=== PATIENT | male | born 1960 | race Caucasian/White ===

== ENCOUNTER 2017-06-06 02:35 | Emergency (ER) | payer OTHER ==
[~2017-06-06] VITALS: Ht 180.3 cm; Wt 64.9 kg
[~2017-06-06 02:35] MED LIST: ALBUTEROL0.09 MG/A2 IH; AMBIEN10 M1 PO; ANAPROX DS550 MG PO; ANTIVERT25 MG PO; ASCRIPTIN325 MG PO; ASPRIN/BUTALBIT1 TAB PO; BIAXIN500 MG PO; CALCIUM; CELEXA20 MG PO; DELTASONE20 MG PO; DOXYCYCLINE100 M2 PO; ENTEX PSE 400 M1 CER PO; FLEXERIL10 MG PO; FLEXERIL5 MG PO; FOSAMAX70 MG PO; HYDROCODONE BIT1 T11 PO; LEVAQUIN750 MG PO; LISINOPRIL10 MG PO; LISINOPRIL20 MG PO; LOVASTATIN20 MG PO; LOVASTATIN40 MG PO; MEDROL DOSEPAK4 MG PO; MOTRIN800 MG PO; NASACORT55 MCG/ACT NS; OYSTER CALCIUM500 MG PO; OYSTER SHELL C500 M3 PO; PERCOCET 325 MG1 TA5 PO; PERCOCET 325 MG1 TA7 PO; PRILOSEC20 MG PO; PROVENTIL0.09 MG/AC IH; ROBITUSSIN AC 10 MG/ PO; SINGULAIR10 MG PO; TORADOL10 MG PO; VICODIN 5/500 505 MG PO; VICODIN ES 7501 TAB PO; ZANTAC150 MG PO; ZITHROMAX Z PA250 MG PO; ZITHROMAX500 MG PO
[2017-06-06 03:02] LABS: BASO % 0.3 % (0.0-1.0); EOS # 0.1 10*3/uL (0.0-0.4); EOS % 1.1 % (1.0-4.0); HEMATOCRIT 41.5 % (42.0-52.0); HEMOGLOBIN 15.1 g/dl (14.0-18.0); LYMPH % 39.6 % (27.0-41.0); MEAN CELL VOLUME 98.6 fl (80.0-94.0); MEAN CORPUSCULAR HGB 35.9 pg (27.0-31.0); MEAN CORPUSCULAR HGB CONC 36.4 g/dl (33.0-37.0); MEAN PLATELET VOLUME 10.5 fl (9.6-12.3); MONO # 0.5 10*3/uL (0.1-1.0); MONO % 5.4 % (3.0-9.0); NEUT # 5.3 10*3/uL (2.3-7.9); NEUT % 53.3 % (47.0-73.0); PLATELET COUNT AUTOMATED 202 10*3/uL (130-400); RED BLOOD COUNT 4.21 10*6/uL (4.50-5.90); RED CELL DISTRI WIDTH 12.7 % (0-14.5)
[2017-06-06 03:13] LABS: ACT PARTIAL THROMBO TIME 29.5 SECONDS (20.8-31.5)
[2017-06-06 03:18] LABS: ALKALINE PHOSPHATASE 103 U/L (45-117); BUN 6 mg/dl (7-24); CHLORIDE 95 mmol/L (98-107); CREATININE 0.76 mg/dL (0.70-1.30); LIPASE 171 U/L (73-393); POTASSIUM 4.1 mmol/L (3.5-5.1); SGOT/AST 42 IU/L (3-35); SGPT/ALT 27 U/L (12-78); SODIUM 132 mmol/L (136-145); TOTAL PROTEIN 6.6 gm/dL (6.4-8.2)
[2017-06-06 05:34] VITALS: BP 100/56
== END 2017-06-06 06:58 | disposition home or self-care (01) ==
LOC: ED 02:35
PROVIDERS: Emergency Medicine Emergency Medical Services
DX: S01.01XA Laceration without foreign body of scalp, initial encounter (principal); F10.129 Alcohol abuse with intoxication, unspecified; F17.200 Nicotine dependence, unspecified, uncomplicated; Z88.0 Allergy status to penicillin; Z79.899 Other long term (current) drug therapy; Z91.018 Allergy to other foods; Y04.0XXA Assault by unarmed brawl or fight, initial encounter; Y93.89 Activity, other specified; Y92.89 Other specified places as the place of occurrence of the external cause; Y99.8 Other external cause status

== ENCOUNTER 2017-09-08 22:26 | Emergency (ER) | payer OTHER ==
[~2017-09-08] VITALS: Ht 180.3 cm; Wt 64.9 kg
[2017-09-08 22:31] VITALS: BP 123/81
[2017-09-08 23:00] LABS: BASO % 0.3 % (0.0-1.0); EOS # 0.1 10*3/uL (0.0-0.4); EOS % 0.7 % (1.0-4.0); HEMATOCRIT 38.2 % (42.0-52.0); HEMOGLOBIN 13.7 g/dl (14.0-18.0); LYMPH # 3.3 10*3/uL (1.3-4.4); LYMPH % 32.4 % (27.0-41.0); MEAN CELL VOLUME 101.1 fl (80.0-94.0); MEAN CORPUSCULAR HGB 36.2 pg (27.0-31.0); MEAN CORPUSCULAR HGB CONC 35.9 g/dl (33.0-37.0); MEAN PLATELET VOLUME 10.2 fl (9.6-12.3); MONO # 1.1 10*3/uL (0.1-1.0); MONO % 10.9 % (3.0-9.0); NEUT # 5.7 10*3/uL (2.3-7.9); NEUT % 55.4 % (47.0-73.0); PLATELET COUNT AUTOMATED 121 10*3/uL (130-400); RED BLOOD COUNT 3.78 10*6/uL (4.50-5.90); RED CELL DISTRI WIDTH 13.3 % (0-14.5); WHITE BLOOD COUNT 10.2 10*3/uL (4.8-10.8)
[2017-09-08 23:10] LABS: ACT PARTIAL THROMBO TIME 29.9 SECONDS (20.8-31.5)
[2017-09-08 23:22] LABS: ALBUMIN 3.6 gm/dl (3.1-4.5); ALKALINE PHOSPHATASE 71 U/L (45-117); BUN 16 mg/dl (7-24); CHLORIDE 103 mmol/L (98-107); CREATININE 0.67 mg/dL (0.70-1.30); LIPASE 329 U/L (73-393); POTASSIUM 3.9 mmol/L (3.5-5.1); SGOT/AST 26 IU/L (3-35); SGPT/ALT 28 U/L (12-78); SODIUM 138 mmol/L (136-145); TOTAL PROTEIN 6.6 gm/dL (6.4-8.2); TROPONIN I < 0.015 ng/ml (<0.045)
[2017-09-08 23:42] LABS: BILIRUBIN NEGATIVE (NEGATIVE); BLOOD TRACE-INTACT (NEGATIVE); CLARITY CLEAR (CLEAR); COLOR YELLOW (YELLOW); GLUCOSE NEGATIVE (NEGATIVE); KETONE NEGATIVE (NEGATIVE); LEUKO ESTERASE NEGATIVE (NEGATIVE); NITRITE NEGATIVE (NEGATIVE); PH 5.5 (5.0-9.0); UROBILINOGEN 0.2 E.U./dl (0.2-1.0)
[2017-09-08 23:49] LABS: EPITHELIAL CELLS 0-5; RBC 0-2 rbc/hpf (0-2); WBC 0-2 wbc/hpf (0-5)
[2017-09-09] MEDS ORDERED: CIPRO500 MG PO (00:54)
[2017-09-09] MEDS ORDERED: ANAPROX DS550 MG PO (00:54)
== END 2017-09-09 01:02 | disposition home or self-care (01) ==
LOC: ED 22:26
PROVIDERS: Physician Assistant
DX: K52.9 Noninfective gastroenteritis and colitis, unspecified (principal); J98.11 Atelectasis; M25.511 Pain in right shoulder; F17.200 Nicotine dependence, unspecified, uncomplicated; Z88.0 Allergy status to penicillin; Z79.899 Other long term (current) drug therapy; Z91.09 Other allergy status, other than to drugs and biological substances

== ENCOUNTER 2017-11-03 21:59 | Inpatient (IN) | payer OTHER ==
[~2017-11-03] VITALS: Ht 180.3 cm; Wt 75.8 kg
--- NOTE | ~2017-11-03 | PR ---
[place], [place] PROGRESS NOTE NAME: THELMA ODEN [facility] #: [id number] UNIT #: [id number] ROOM: 530 DOCTOR: MATI NARANJO MD BIRTHDATE: [birth year] DOS: CARDIOLOGY PROGRESS NOTE SUBJECTIVE: The patient was seen in the Cardiology Department just prior to his stress test today. He is a 57-year-old man who presented to the hospital with rapidly progressive dyspnea. He has no chest pain. His chest x-ray showed pulmonary vascular congestion. BNP was 1224, but troponin levels were normal. It was felt that he had acute congestive heart failure. He was diuresed and improved. An echocardiogram today showed normal left ventricular size with thickened mitral valve leaflets with decreased leaflet excursion. He had kqffgiss-yg-nlymoo mitral insufficiency. There was no definite mitral stenosis. The aortic valve was mildly sclerotic. Left ventricular chamber dimensions were normal. His IVC was dilated consistent with elevated central venous pressures. The patient does admit to a history of rheumatic fever when he was about 9 years of age. PHYSICAL EXAMINATION: VITAL SIGNS: Today, pulse is 75 and regular, blood pressure is 109/69. He is afebrile. NECK: Supple. He has no jugular distention or hepatojugular reflux. Carotids are full. LUNGS: Respirations are unlabored. He has decreased breath sounds at the bases, but no rales. HEART: Has a regular rhythm. He has a grade 3/6 harsh low pitched holosystolic murmur at the apex radiating into the axilla. No diastolic murmurs are heard. The PMI is not displaced. There is no precordial heave, lift or thrill. ABDOMEN: Soft and normally active. EXTREMITIES: Showed no edema. IMPRESSION: 1. Subacute pulmonary edema. 2. Hypertension. 3. Type 2 diabetes mellitus. 4. History of rheumatic fever when the patient was 9 years of age. 5. Echocardiography consistent with zplfqgbv-ud-atprfl mitral insufficiency. PLAN: We will proceed with a pharmacologic stress test today. If it shows any signs of ischemia, then he will require cardiac catheterization. Otherwise, he may be treated medically for a time, but will require further assessment, possibly with a transesophageal echocardiogram once he has been stabilized and consideration for valve replacement in the future. I thank the hospitalist physicians for asking our advice regarding his care. ADDENDUM [place], [place] PROGRESS NOTE NAME: THELMA ODEN UNIT #: [id number] ROOM: 530 DOCTOR: MATI NARANJO MD BIRTHDATE: [birth year] I reviewed the patient's nuclear perfusion images. He does have a moderately enlarged heart with a moderate sized area of anteroseptal ischemia at the basal and mid left ventricular levels. Left ventricular systolic function is preserved with an ejection fraction between 60% and 70%. He presented with heart failure, which is probably due to a combination of ischemic heart disease and mitral insufficiency from rheumatic heart disease. I have discussed his case with the fitness professional at [facility]. They think that there is a good chance that he will require mitral valve replacement and have suggested that we do a transesophageal echocardiogram at [facility] as a first step. The images would be reviewed by the surgeons. If they agree that he requires valve repair or replacement, then catheterization would be done as a "roadmap." If, however, they want us to treat him medically as a first step, catheterization would be done to determine his coronary anatomy and probably do angioplasty and stenting. Unfortunately, the patient states that he has family business that he must attend to prior to any consideration of surgeries and told me that he would not agree to go to [facility] until he has had a chance to go home, talk to his family and make arrangements. Then, he will give us a call. We will adjust his medications as we can and proceed when he will let us. I thank Dr. Perdue for asking our advice regarding his care. MATI NARANJO MD CM:PNTRANS [id number] MATI NARANJO MD 11/06/17 0428 interface
--- NOTE | ~2017-11-03 | PR ---
[place], [place] PROGRESS [id number] UNIT #: [id number] ROOM: 530 DOCTOR: MARCELLA KUMAR,MATI BIRTHDATE: [birth year] DOS: 11/05/2017 ADDENDUM I reviewed the patient's nuclear perfusion images. He does have a moderately enlarged heart with a moderate sized area of anteroseptal ischemia at the basal and mid left ventricular levels. Left ventricular systolic function is preserved with an ejection fraction between 60% and 70%. He presented with heart failure, which is probably due to a combination of ischemic heart disease and mitral insufficiency from rheumatic heart disease. I have discussed his case with the tong setter at [facility]. They think that there is a good chance that he will require mitral valve replacement and have suggested that we do a transesophageal echocardiogram at [facility] as a first step. The images would be reviewed by the surgeons. If they agree that he requires valve repair or replacement, then catheterization would be done as a "roadmap." If, however, they want us to treat him medically as a first step, catheterization would be done to determine his coronary anatomy and probably do angioplasty and stenting. Unfortunately, the patient states that he has family business that he must attend to prior to any consideration of surgeries and told me that he would not agree to go to [facility] until he has had a chance to go home, talk to his family and make arrangements. Then, he will give us a call. We will adjust his medications as we can and proceed when he will let us. I thank Dr. Perdue for asking our advice regarding his care. MATI NARANJO MD CM:PNTRANS [phone] MATI NARANJO MD 11/06/17 1917 interface
[~2017-11-03 21:59] MED LIST changes: +CIPRO500 MG PO
[2017-11-03 22:06] VITALS: BP 167/107
[2017-11-03 22:26] LABS: BASO % 0.4 % (0.0-1.0); EOS # 0.1 10*3/uL (0.0-0.4); EOS % 1.4 % (1.0-4.0); HEMATOCRIT 39.3 % (42.0-52.0); HEMOGLOBIN 13.5 g/dl (14.0-18.0); LYMPH # 2.3 10*3/uL (1.3-4.4); LYMPH % 30.5 % (27.0-41.0); MEAN CELL VOLUME 104.8 fl (80.0-94.0); MEAN CORPUSCULAR HGB CONC 34.4 g/dl (33.0-37.0); MEAN PLATELET VOLUME 10.7 fl (9.6-12.3); MONO # 0.8 10*3/uL (0.1-1.0); MONO % 10.3 % (3.0-9.0); NEUT # 4.4 10*3/uL (2.3-7.9); NEUT % 57.1 % (47.0-73.0); PLATELET COUNT AUTOMATED 181 10*3/uL (130-400); RED BLOOD COUNT 3.75 10*6/uL (4.50-5.90); RED CELL DISTRI WIDTH 14.1 % (0-14.5); WHITE BLOOD COUNT 7.6 10*3/uL (4.8-10.8)
[2017-11-03 22:27] LABS: ABG BASE EXCESS 1.9 mmol/L (-2.0-2.0); ABG HCO3 26.7 mmol/l (22-26); ABG O2 SATURATION 94.6 % (95-97); ARTERIAL BLOOD GAS PCO2 42.9 mmHg (35-45); ARTERIAL BLOOD GAS PH 7.407 (7.35-7.45); ARTERIAL BLOOD GAS PO2 71.1 mmHg (80-90)
[2017-11-03 22:35] VITALS: BP 144/104
[2017-11-03 22:35] LABS: INTERNATIONAL NORM RATIO 1.1 (2.0-3.5)
[2017-11-03 22:44] LABS: ALBUMIN 3.5 gm/dl (3.1-4.5); ALKALINE PHOSPHATASE 90 U/L (45-117); BUN 14 mg/dl (7-24); CHLORIDE 103 mmol/L (98-107); CREATININE 0.76 mg/dL (0.70-1.30); POTASSIUM 3.3 mmol/L (3.5-5.1); SGOT/AST 44 IU/L (3-35); SGPT/ALT 51 U/L (12-78); SODIUM 140 mmol/L (136-145); TOTAL PROTEIN 6.3 gm/dL (6.4-8.2)
[2017-11-03 22:45] LABS: TROPONIN I 0.019 ng/ml (<0.045)
[2017-11-03 23:29] VITALS: BP 142/91
[2017-11-03 23:49] VITALS: BP 151/89
[2017-11-04] VITALS (7 sets, daily range): BP systolic 107–145; BP diastolic 56–89
[2017-11-04] LABS: BILIRUBIN NEGATIVE (NEGATIVE); BLOOD TRACE-LYSED (NEGATIVE); CLARITY CLEAR (CLEAR); COLOR YELLOW (YELLOW); GLUCOSE NEGATIVE (NEGATIVE); KETONE NEGATIVE (NEGATIVE); LEUKO ESTERASE NEGATIVE (NEGATIVE); NITRITE NEGATIVE (NEGATIVE); PH 6.5 (5.0-9.0); SPECIFIC GRAVITY 1.025 (1.005-1.030); UROBILINOGEN 0.2 E.U./dl (0.2-1.0)
[2017-11-04 05:53] LABS: BASO % 0.2 % (0.0-1.0); HEMATOCRIT 37.5 % (42.0-52.0); LYMPH # 0.5 10*3/uL (1.3-4.4); LYMPH % 11.9 % (27.0-41.0); MEAN CELL VOLUME 102.5 fl (80.0-94.0); MEAN CORPUSCULAR HGB 35.5 pg (27.0-31.0); MEAN CORPUSCULAR HGB CONC 34.7 g/dl (33.0-37.0); MEAN PLATELET VOLUME 10.9 fl (9.6-12.3); MONO # 0.1 10*3/uL (0.1-1.0); MONO % 2.2 % (3.0-9.0); NEUT # 3.9 10*3/uL (2.3-7.9); NEUT % 85.5 % (47.0-73.0); PLATELET COUNT AUTOMATED 182 10*3/uL (130-400); RED BLOOD COUNT 3.66 10*6/uL (4.50-5.90); RED CELL DISTRI WIDTH 13.4 % (0-14.5); WHITE BLOOD COUNT 4.5 10*3/uL (4.8-10.8)
[2017-11-04 06:09] LABS: BUN 11 mg/dl (7-24); CHLORIDE 99 mmol/L (98-107); CHOLESTEROL 116 mg/dL (<200); CREATININE 0.89 mg/dL (0.70-1.30); HDL CHOLESTEROL 38 mg/dl (40-60); LDL CHOLESTEROL 64 mg/dL (9-159); PHOSPHOROUS 3.3 mg/dL (2.5-4.9); POTASSIUM 3.4 mmol/L (3.5-5.1); SODIUM 138 mmol/L (136-145); TRIGLYCERIDES 72 mg/dl (<150); VLDL CHOLESTEROL 14 mg/dL (6-40)
[2017-11-04 09:26] LABS: VITAMIN D, 25-HYDROXY 39.2 ng/mL (30-100)
[2017-11-04] MEDS ORDERED: BACLOFEN5 MG PO (10:14)
[2017-11-04] MEDS ORDERED: GABAPENTIN600 MG PO (10:15)
[2017-11-04] MEDS ORDERED: ASPIRIN325 M2 PO (10:15)
[2017-11-04] MEDS ORDERED: CITALOPRAM20 MG PO (10:16)
[2017-11-04] MEDS ORDERED: NATURE'S BLEND F1 MG PO (10:17)
[2017-11-04 23:35] LABS: CHLORIDE 96 mmol/L (98-107); CREATININE 1.07 mg/dL (0.70-1.30); SODIUM 133 mmol/L (136-145)
[2017-11-04 23:36] LABS: BUN 31 mg/dl (7-24); POTASSIUM 4.6 mmol/L (3.5-5.1)
[2017-11-05] VITALS: BP 103/66
[2017-11-05 06:28] LABS: BUN 25 mg/dl (7-24); CHLORIDE 97 mmol/L (98-107); CREATININE 1.15 mg/dL (0.70-1.30); POTASSIUM 4.1 mmol/L (3.5-5.1); SODIUM 135 mmol/L (136-145)
[2017-11-05 08:00] VITALS: BP 109/69
[2017-11-05 12:00] VITALS: BP 109/67
[2017-11-05 16:00] VITALS: BP 104/52
[2017-11-05 20:00] VITALS: BP 116/58
[2017-11-06] VITALS: BP 105/75
[2017-11-06 06:08] LABS: BASO % 0.1 % (0.0-1.0); HEMATOCRIT 38.7 % (42.0-52.0); HEMOGLOBIN 13.3 g/dl (14.0-18.0); LYMPH # 0.9 10*3/uL (1.3-4.4); LYMPH % 11.3 % (27.0-41.0); MEAN CELL VOLUME 105.2 fl (80.0-94.0); MEAN CORPUSCULAR HGB 36.1 pg (27.0-31.0); MEAN CORPUSCULAR HGB CONC 34.4 g/dl (33.0-37.0); MEAN PLATELET VOLUME 11.2 fl (9.6-12.3); MONO # 0.4 10*3/uL (0.1-1.0); MONO % 4.7 % (3.0-9.0); NEUT # 6.4 10*3/uL (2.3-7.9); NEUT % 83.4 % (47.0-73.0); PLATELET COUNT AUTOMATED 194 10*3/uL (130-400); RED BLOOD COUNT 3.68 10*6/uL (4.50-5.90); RED CELL DISTRI WIDTH 14.1 % (0-14.5); WHITE BLOOD COUNT 7.7 10*3/uL (4.8-10.8)
[2017-11-06 08:00] VITALS: BP 117/64
[2017-11-06 12:00] VITALS: BP 121/70
== END 2017-11-06 12:45 | disposition left against medical advice (07) | DRG 291 ==
LOC: ED 21:59 → 5E 23:46 → EDHOLD 23:46 → 5E 23:48
PROVIDERS: Emergency Medicine Emergency Medical Services; Internal Medicine; Student in an Organized Health Care Education/Training Program
PROC: 5A09357 Assistance with Respiratory Ventilation, Less than 24 Consecutive Hours, Continuous Positive Airway Pressure (ICD-10-PCS; 2017-11-03)
PROC: 5A09357 Assistance with Respiratory Ventilation, Less than 24 Consecutive Hours, Continuous Positive Airway Pressure (ICD-10-PCS; 2017-11-04)
PROC: 4A02XM4 Measurement of Cardiac Total Activity, External Approach (ICD-10-PCS; principal; 2017-11-05)
PROC: 3E073KZ Introduction of Other Diagnostic Substance into Coronary Artery, Percutaneous Approach (ICD-10-PCS; 2017-11-05)
DX: I11.0 Hypertensive heart disease with heart failure (principal); J96.01 Acute respiratory failure with hypoxia; E23.0 Hypopituitarism; E87.1 Hypo-osmolality and hyponatremia; J44.1 Chronic obstructive pulmonary disease with (acute) exacerbation; I25.9 Chronic ischemic heart disease, unspecified; I50.33 Acute on chronic diastolic (congestive) heart failure; E67.8 Other specified hyperalimentation; E87.8 Other disorders of electrolyte and fluid balance, not elsewhere classified; E11.65 Type 2 diabetes mellitus with hyperglycemia; E53.8 Deficiency of other specified B group vitamins; D72.819 Decreased white blood cell count, unspecified; D72.9 Disorder of white blood cells, unspecified; D72.810 Lymphocytopenia; D53.9 Nutritional anemia, unspecified; D72.818 Other decreased white blood cell count; R79.89 Other specified abnormal findings of blood chemistry; E78.5 Hyperlipidemia, unspecified; K21.9 Gastro-esophageal reflux disease without esophagitis; M81.0 Age-related osteoporosis without current pathological fracture; I34.0 Nonrheumatic mitral (valve) insufficiency; Z53.21 Procedure and treatment not carried out due to patient leaving prior to being seen by health care provider; Z88.0 Allergy status to penicillin; Z91.018 Allergy to other foods; Z79.899 Other long term (current) drug therapy; Z82.49 Family history of ischemic heart disease and other diseases of the circulatory system; Z83.6 Family history of other diseases of the respiratory system; Z80.1 Family history of malignant neoplasm of trachea, bronchus and lung; Z84.89 Family history of other specified conditions; Z79.82 Long term (current) use of aspirin

== ENCOUNTER 2018-01-17 11:10 | Emergency (ER) | payer OTHER ==
[~2018-01-17] VITALS: Ht 180.3 cm; Wt 62.1 kg
--- NOTE | ~2018-01-17 | EKG ---
[place], [place] ELECTROCARDIOGRAM REPORT NAME: THELMA ODEN UNIT #: [id number] ROOM: DOCTOR: EPIPHANY DRAFT REPORT BIRTHDATE: [birth year] [facility] Test Date: 2018-01-17 Test Time: 11:11:42 Pat Name: THELMA ODEN Department: Room: Gender: Racker Octave Board: Lyndsay Lopez : 1960 Requested By: KHUSHBU WILLIAMSON Order Number: [id number] Reading MD: Gibran Garcia MD Measurements Intervals [place] Rate: 96 P: 184 ID: [id number] QRS: 116 QRSD: 117 T: 52 QT: 372 QTc: 471 Interpretive Statements Ventricular-paced rhythm No further analysis attempted due to paced rhythm Electronically Signed On 01-21-2018 8:38:30 PDT by Gibran Garcia MD CM:EKGRPT:ELECTROCARDIOGRAM REPORT [id number] KHUSHBU MICHAEL DRAFT REPORT KHUSHBU WILLIAMSON M.D.
[~2018-01-17 11:10] MED LIST changes: +ASPIRIN325 M2 PO; +BACLOFEN5 MG PO; +CITALOPRAM20 MG PO; +FOSAMAX70 M1 PO; +GABAPENTIN600 MG PO; -LISINOPRIL10 MG PO; +NATURE'S BLEND F1 MG PO; +ZANTAC 150150 MG PO; +ZESTRIL10 MG PO
[2018-01-17 11:34] LABS: BASO % 0.2 % (0.0-1.0); EOS # 0.2 10*3/uL (0.0-0.4); HEMATOCRIT 29.3 % (42.0-52.0); HEMOGLOBIN 10.5 g/dl (14.0-18.0); LYMPH # 1.4 10*3/uL (1.3-4.4); LYMPH % 13.6 % (27.0-41.0); MEAN CELL VOLUME 98.3 fl (80.0-94.0); MEAN CORPUSCULAR HGB 35.2 pg (27.0-31.0); MEAN CORPUSCULAR HGB CONC 35.8 g/dl (33.0-37.0); MEAN PLATELET VOLUME 10.4 fl (9.6-12.3); MONO # 1.2 10*3/uL (0.1-1.0); MONO % 11.4 % (3.0-9.0); NEUT # 7.2 10*3/uL (2.3-7.9); PLATELET COUNT AUTOMATED 252 10*3/uL (130-400); RED BLOOD COUNT 2.98 10*6/uL (4.50-5.90); RED CELL DISTRI WIDTH 15.5 % (0-14.5); WHITE BLOOD COUNT 10.1 10*3/uL (4.8-10.8)
[2018-01-17 11:44] LABS: ACT PARTIAL THROMBO TIME 26.7 SECONDS (20.8-31.5); INTERNATIONAL NORM RATIO 1.1 (2.0-3.5)
[2018-01-17 11:50] LABS: ALKALINE PHOSPHATASE 65 U/L (45-117); BUN 16 mg/dl (7-24); CHLORIDE 96 mmol/L (98-107); CREATININE 0.48 mg/dL (0.70-1.30); POTASSIUM 4.2 mmol/L (3.5-5.1); SGOT/AST 34 IU/L (3-35); SGPT/ALT 31 U/L (12-78); SODIUM 132 mmol/L (136-145)
[2018-01-17 11:55] LABS: TROPONIN I 0.419 ng/ml (<0.045)
[2018-01-17 15:07] VITALS: BP 124/85
[2018-01-24] MEDS ORDERED: DEPO-TESTO100 MG/1 M IM (03:05)
[2018-01-24] MEDS ORDERED: LIDODERM1 EACH T (03:06)
[2018-01-24] MEDS ORDERED: GLUCOPHAGE500 M1 PO (03:07)
[2018-01-24] MEDS ORDERED: B121000 MCG/1 IM (03:07)
[2018-01-24] MEDS ORDERED: COREG3.125 MG PO (03:07)
[2018-01-24] MEDS ORDERED: BANOPHEN25 MG PO (03:08)
[2018-01-24] MEDS ORDERED: VITAMIN D32000 UNI2 PO (03:08)
[2018-01-24] MEDS ORDERED: Magnesium Oxid400 MG PO (03:09)
[2018-01-24] MEDS ORDERED: NORCO 5-325 TA1 EACH PO (03:09)
[2018-01-25] MEDS ORDERED: COREG3.125 MG PO (22:41)
== END 2018-01-17 16:40 | disposition home or self-care (01) ==
LOC: ED 11:10
PROVIDERS: Emergency Medicine
DX: R07.9 Chest pain, unspecified (principal); R06.00 Dyspnea, unspecified; I11.0 Hypertensive heart disease with heart failure; I50.9 Heart failure, unspecified; J44.9 Chronic obstructive pulmonary disease, unspecified; K21.9 Gastro-esophageal reflux disease without esophagitis; E78.5 Hyperlipidemia, unspecified; F17.200 Nicotine dependence, unspecified, uncomplicated; Z88.0 Allergy status to penicillin; Z91.018 Allergy to other foods; Z79.82 Long term (current) use of aspirin; Z79.1 Long term (current) use of non-steroidal anti-inflammatories (NSAID); Z79.899 Other long term (current) drug therapy; Z95.0 Presence of cardiac pacemaker

== ENCOUNTER 2018-12-14 17:38 | Inpatient (IN) | payer OTHER ==
[~2018-12-14] VITALS: Ht 180.3 cm; Wt 66.4 kg
[~2018-12-14 17:38] MED LIST changes: +B121000 MCG/1 IM; +BANOPHEN25 MG PO; +COREG3.125 MG PO; +DEPO-TESTO100 MG/1 M IM; +GLUCOPHAGE500 M1 PO; +LIDODERM1 EACH T; +Magnesium Oxid400 MG PO; +NORCO 5-325 TA1 EACH PO; +VITAMIN D32000 UNI2 PO
[2018-12-14 17:49] VITALS: BP 143/96
[2018-12-14 17:56] LABS: BASO % 0.2 % (0.0-1.0); EOS % 0.4 % (1.0-4.0); HEMATOCRIT 44.1 % (42.0-52.0); HEMOGLOBIN 15.8 g/dl (14.0-18.0); LYMPH # 1.6 10*3/uL (1.3-4.4); LYMPH % 16.5 % (27.0-41.0); MEAN CORPUSCULAR HGB 35.8 pg (27.0-31.0); MEAN CORPUSCULAR HGB CONC 35.8 g/dl (33.0-37.0); MEAN PLATELET VOLUME 10.5 fl (9.6-12.3); MONO # 1.1 10*3/uL (0.1-1.0); MONO % 11.3 % (3.0-9.0); NEUT # 6.8 10*3/uL (2.3-7.9); NEUT % 71.2 % (47.0-73.0); PLATELET COUNT AUTOMATED 155 10*3/uL (130-400); RED BLOOD COUNT 4.41 10*6/uL (4.50-5.90); RED CELL DISTRI WIDTH 12.6 % (0-14.5); WHITE BLOOD COUNT 9.6 10*3/uL (4.8-10.8)
[2018-12-14 18:07] LABS: ACT PARTIAL THROMBO TIME 30.5 SECONDS (20.0-32.1)
[2018-12-14 18:17] LABS: ALBUMIN 3.9 gm/dl (3.1-4.5); ALKALINE PHOSPHATASE 137 U/L (45-117); BUN 15 mg/dl (7-24); CHLORIDE 92 mmol/L (98-107); CREATININE 0.87 mg/dL (0.70-1.30); POTASSIUM 4.2 mmol/L (3.5-5.1); SGOT/AST 108 IU/L (3-35); SGPT/ALT 117 U/L (12-78); SODIUM 126 mmol/L (136-145); TOTAL PROTEIN 7.2 gm/dL (6.4-8.2)
[2018-12-14 18:19] LABS: TROPONIN I < 0.015 ng/ml (<0.045)
--- NOTE | 2018-12-14 19:14 | NUR ---
REPORT GIVEN TO GRAPE CRUSHER RN
[2018-12-14 19:21] VITALS: BP 151/90
--- NOTE | 2018-12-14 19:25 | NUR ---
REPORT RECEIVED.VITALS STABLE.PT TALKING ON PHONE WITH SISTER,DRINKING COFFEE.MONITOR ST [phone]. HE IS BEING ADMITTED. WHEEZES STILL NOTED UPON AUSCULTATION.---MIROSLAVA STEINBERG RN
[2018-12-14] MEDS ORDERED: ASPIRIN ADULT L81 M1 PO (20:43)
[2018-12-15] VITALS: BP 124/84
[2018-12-15 00:05] LABS: TROPONIN I < 0.015 ng/ml (<0.045)
[2018-12-15 00:10] LABS: CPK 898 U/L (39-308)
--- NOTE | 2018-12-15 03:30 | NUR ---
Patient resting quietly with no c/o discomfort. Respirations easy and regular. Vital signs stable. No overt distress. KRISTA REED
[2018-12-15 06:30] LABS: BASO % 0.2 % (0.0-1.0); HEMOGLOBIN 15.7 g/dl (14.0-18.0); LYMPH # 0.9 10*3/uL (1.3-4.4); LYMPH % 17.9 % (27.0-41.0); MEAN CELL VOLUME 100.2 fl (80.0-94.0); MEAN CORPUSCULAR HGB 35.8 pg (27.0-31.0); MEAN CORPUSCULAR HGB CONC 35.7 g/dl (33.0-37.0); MEAN PLATELET VOLUME 11.2 fl (9.6-12.3); MONO # 0.6 10*3/uL (0.1-1.0); MONO % 11.3 % (3.0-9.0); NEUT # 3.4 10*3/uL (2.3-7.9); PLATELET COUNT AUTOMATED 163 10*3/uL (130-400); RED BLOOD COUNT 4.39 10*6/uL (4.50-5.90); RED CELL DISTRI WIDTH 12.5 % (0-14.5); WHITE BLOOD COUNT 4.9 10*3/uL (4.8-10.8)
[2018-12-15 07:01] LABS: BUN 17 mg/dl (7-24); CHLORIDE 94 mmol/L (98-107); POTASSIUM 4.4 mmol/L (3.5-5.1); SODIUM 131 mmol/L (136-145)
[2018-12-15 08:00] VITALS: BP 150/90
--- NOTE | 2018-12-15 10:52 | NUR ---
PT HAS HACKY MOIST COUGH, NOTES SPUTUM GETS TO BACK OF THROAT AND CAN'T BRING IT UP FURTHER. CALL PLACED TO DR CRESPO FOR MUCINEX. ORDER RECEIVED.
[2018-12-15 12:00] VITALS: BP 128/81
[2018-12-15 16:00] VITALS: BP 143/85
[2018-12-15 20:00] VITALS: BP 138/76
--- NOTE | 2018-12-15 20:34 | NUR ---
24 HR chart check completed. Patient resting quietly with no c/o discomfort. Respirations easy and regular. Vital signs stable. No overt distress. KRISTA REED
[2018-12-16] VITALS: BP 129/82
--- NOTE | 2018-12-16 | NUR ---
Patient resting quietly with no c/o discomfort. Respirations easy and regular. Vital signs stable. No overt distress. KRISTA REED
--- NOTE | 2018-12-16 04:00 | NUR ---
Patient resting quietly with no c/o discomfort. Respirations easy and regular. Vital signs stable. No overt distress. KRISTA REED
[2018-12-16 06:21] LABS: BASO % 0.1 % (0.0-1.0); HEMATOCRIT 38.3 % (42.0-52.0); HEMOGLOBIN 13.5 g/dl (14.0-18.0); LYMPH % 10.3 % (27.0-41.0); MEAN CELL VOLUME 100.8 fl (80.0-94.0); MEAN CORPUSCULAR HGB 35.5 pg (27.0-31.0); MEAN CORPUSCULAR HGB CONC 35.2 g/dl (33.0-37.0); MEAN PLATELET VOLUME 11.2 fl (9.6-12.3); MONO # 0.5 10*3/uL (0.1-1.0); MONO % 5.4 % (3.0-9.0); NEUT % 83.4 % (47.0-73.0); PLATELET COUNT AUTOMATED 153 10*3/uL (130-400); RED CELL DISTRI WIDTH 12.9 % (0-14.5); WHITE BLOOD COUNT 9.6 10*3/uL (4.8-10.8)
[2018-12-16 06:33] LABS: BUN 23 mg/dl (7-24); CHLORIDE 98 mmol/L (98-107); CREATININE 0.92 mg/dL (0.70-1.30); POTASSIUM 4.6 mmol/L (3.5-5.1); SODIUM 135 mmol/L (136-145)
--- NOTE | 2018-12-16 06:40 | NUR ---
PT WITH C/O PAIN TO CHEST FROM COUGHING. ATTEMPTED TO CALL FOR PAIN MED, NO ANSWER.
[2018-12-16 08:00] VITALS: BP 118/80
--- NOTE | 2018-12-16 09:00 | NUR ---
Tour Coordinator in to talk to patient. Patient states lives at home with his brother. There are 12 upstairs steps in the home which he states he doesn't use except to empty his BSC. Physician: Dr. Jimi Perdue [facility]: [facility] Home health services: none Patient's level of ADLs: INDEPENDENT Patient has working utilities: yes DME: BSC, O2 @ 2L nc, portable O2 tanks, O2 supplier [facility] Follow-up physician's appointment after d/c: he prefers to make his own follow up appt after discharge Does patient want to access PORTAL?: no Discharge plan discussed with patient. He lives at home with his brother. He is independent in his ADLs and ambulation. Discussed home health care services and he denies any home needs at this time. When medically stable he will be discharged to home. His girlfriend will transport on discharge. NIURKA AGOSTO
--- NOTE | 2018-12-16 09:16 | NUR ---
PHYSICAL THERAPY Nursing screen received and chart reviewed. Recommend PT evaluation if decline in functional mobility presents. Thank you. Amie Esposito,PT,DPT.
--- NOTE | 2018-12-16 11:31 | NUR ---
DR CRESPO CALLED BACK FROM CALLED PLACED ON PREVIOUS SHIFT. ORDERS RECIEVED.
--- NOTE | 2018-12-16 11:37 | NUR ---
MESSAGE LEFT VIA VOICEMAIL FOR RETURN CALL FROM [facility] OFFICE TO NOTIFY THEM OF NEW CONSULT.
--- NOTE | 2018-12-16 11:43 | NUR ---
[facility] CARDIOLOGY OFFICE NOTIFIED OF NEW CONSULT FOR ELEVATYED CARDIAC ENZYMES.
[2018-12-16 12:00] VITALS: BP 120/69
--- NOTE | 2018-12-16 12:36 | NUR ---
DR BROOKS ROUNDED AND SEEN PT.
--- NOTE | 2018-12-16 13:10 | NUR ---
DR JENSEN ROUNDED AND DISCUSSED PLAN OF CARE WITH PT AND . PT SPLINT TO REMAIN INTACT UNTIL DR JENSEN REMOVES IT.
--- NOTE | 2018-12-16 13:23 | NUR ---
DR CRESPO ROUNDED AND SEEN PT.
--- NOTE | 2018-12-16 15:28 | NUR ---
PT TRANSPORTED VIA BED TO FIFTH FLOOR FOR DIALYSIS PER DR INMAN'S ORDER.
--- NOTE | 2018-12-16 15:50 | NUR ---
Pt found on an 8L NC. Pt was previously on room air with 2L available. Pt given breathing tx and decreased back to 2L NC. Spo2 remains at 97%-100%.
[2018-12-16 16:00] VITALS: BP 128/69
--- NOTE | 2018-12-16 16:40 | NUR ---
EDUCATED PT TO NOT TURN UP O2 BUT INSTEAD USE CALL LIGHT AND NOTIFY NURSING AND OR RT.
--- NOTE | 2018-12-16 18:27 | NUR ---
RESTING IN BED WATCHING TV.RESPS EASY ON 2LNC. VOICES NO NEEDS.CALL LIGHT IN REACH.
[2018-12-16 20:00] VITALS: BP 134/63; BP 134/72
[2018-12-17] VITALS: BP 117/71
--- NOTE | 2018-12-17 04:00 | NUR ---
24 HR chart check completed.
[2018-12-17 08:00] VITALS: BP 144/86
[2018-12-17 09:09] LABS: HEMATOCRIT 37.8 % (42.0-52.0); HEMOGLOBIN 13.2 g/dl (14.0-18.0); LYMPH # 1.1 10*3/uL (1.3-4.4); LYMPH % 11.4 % (27.0-41.0); MEAN CORPUSCULAR HGB CONC 34.9 g/dl (33.0-37.0); MEAN PLATELET VOLUME 10.2 fl (9.6-12.3); MONO # 0.8 10*3/uL (0.1-1.0); MONO % 8.4 % (3.0-9.0); NEUT # 7.4 10*3/uL (2.3-7.9); NEUT % 79.6 % (47.0-73.0); PLATELET COUNT AUTOMATED 165 10*3/uL (130-400); RED BLOOD COUNT 3.67 10*6/uL (4.50-5.90); RED CELL DISTRI WIDTH 12.9 % (0-14.5); WHITE BLOOD COUNT 9.3 10*3/uL (4.8-10.8)
[2018-12-17 09:24] LABS: ALBUMIN 3.4 gm/dl (3.1-4.5); ALKALINE PHOSPHATASE 91 U/L (45-117); BUN 24 mg/dl (7-24); CHLORIDE 97 mmol/L (98-107); CREATININE 1.01 mg/dL (0.70-1.30); POTASSIUM 4.4 mmol/L (3.5-5.1); SGOT/AST 45 IU/L (3-35); SGPT/ALT 78 U/L (12-78); SODIUM 132 mmol/L (136-145); TOTAL PROTEIN 6.2 gm/dL (6.4-8.2)
--- NOTE | 2018-12-17 11:52 | NUR ---
DR GREENWOOD NOTIFIED OF NEW CONSULT FOR COPD AND RESPITORY FAILURE/MGMT.
[2018-12-17 12:00] VITALS: BP 140/78
[2018-12-17 16:00] VITALS: BP 126/71
[2018-12-17 20:00] VITALS: BP 150/86
[2018-12-18] VITALS: BP 120/66
[2018-12-18 06:50] LABS: CHLORIDE 95 mmol/L (98-107); POTASSIUM 4.3 mmol/L (3.5-5.1); SODIUM 130 mmol/L (136-145)
[2018-12-18 06:58] LABS: ALBUMIN 3.3 gm/dl (3.1-4.5); ALKALINE PHOSPHATASE 78 U/L (45-117); BUN 19 mg/dl (7-24); SGOT/AST 39 IU/L (3-35); SGPT/ALT 68 U/L (12-78); TOTAL PROTEIN 5.9 gm/dL (6.4-8.2)
[2018-12-18 08:00] VITALS: BP 150/82
--- NOTE | 2018-12-18 09:00 | NUR ---
Circulation Assistant in to see patient. No new needs or request at this time. He denies any home needs. When medically stable he will be discharged to home.
[2018-12-18 09:05] LABS: HEPATITIS B SURFACE AG Negative (Negative); HEPATITIS C VIRUS ANTIBODY <0.1 s/co (0.0-0.9)
[2018-12-18 16:00] VITALS: BP 149/80
[2018-12-18 20:00] VITALS: BP 149/85
[2018-12-19] VITALS: BP 159/85
[2018-12-19 07:28] LABS: CKMB 4.2 ng/ml (0.5-3.6)
[2018-12-19 08:00] VITALS: BP 140/86
--- NOTE | 2018-12-19 08:10 | NUR ---
Patient resting quietly with no c/o discomfort. Respirations easy and regular. Vital signs stable. No overt distress. Patient stating his coughing is better today than yesterday. Informed patient he will be going down for an echo today. LIYA MORALES
--- NOTE | 2018-12-19 10:30 | NUR ---
Wastewater Manager in to see patient. No new needs or request at this time. Discussed home health care and he refuses. Discussed home O2 and he has at home. He states "he has not used his oxygen in the last 5-6 months but did have to use it last ." He does have a portable tank in his room. He was using 1.5 - [address] Velazquez. When medically stable he will be discharged to home.
[2018-12-19 12:00] VITALS: BP 160/90
[2018-12-19 13:34] VITALS: BP 156/90
--- NOTE | 2018-12-19 13:37 | NUR ---
NOTIFIED DR. STEWART OF PATIENT'S MANUAL BLOOD PRESSURE OF 156/90. NO NEW ORDERS RECEIVED.
[2018-12-19 16:00] VITALS: BP 139/82
[2018-12-19 20:00] VITALS: BP 152/88
[2018-12-20] VITALS: BP 148/89
[2018-12-20 06:24] LABS: BASO % 0.4 % (0.0-1.0); HEMATOCRIT 37.2 % (42.0-52.0); HEMOGLOBIN 13.1 g/dl (14.0-18.0); LYMPH # 1.4 10*3/uL (1.3-4.4); LYMPH % 17.2 % (27.0-41.0); MEAN CORPUSCULAR HGB 35.2 pg (27.0-31.0); MEAN CORPUSCULAR HGB CONC 35.2 g/dl (33.0-37.0); MEAN PLATELET VOLUME 10.6 fl (9.6-12.3); MONO # 0.8 10*3/uL (0.1-1.0); MONO % 10.6 % (3.0-9.0); NEUT # 5.6 10*3/uL (2.3-7.9); NEUT % 70.4 % (47.0-73.0); PLATELET COUNT AUTOMATED 218 10*3/uL (130-400); RED BLOOD COUNT 3.72 10*6/uL (4.50-5.90); RED CELL DISTRI WIDTH 12.4 % (0-14.5); WHITE BLOOD COUNT 7.9 10*3/uL (4.8-10.8)
[2018-12-20 08:00] VITALS: BP 142/82
--- NOTE | 2018-12-20 08:30 | NUR ---
Patient resting quietly with no c/o discomfort. Respirations easy and regular. Vital signs stable. No overt distress. KIRSTIE VAZ R
--- NOTE | 2018-12-20 09:00 | NUR ---
Wire Cutter in to see patient. No new needs or request at this time. Discussed home health care services or any needs at home and he denies any home needs. When medically stable he will be discharged to home.
[2018-12-20] MEDS ORDERED: PREDNISONE10 MG PO (10:57)
[2018-12-20] MEDS ORDERED: DOXYCYCLINE100 MG PO (10:57)
[2018-12-20] MEDS ORDERED: CARVEDILOL6.25 MG PO (10:57)
--- NOTE | 2018-12-20 11:50 | NUR ---
PATIENT ASSESSED FOR HOME OXYGEN USE. HEART RATE:63 RESP RATE:18 BLOOD PRESSURE:148/94 SPO2:99% AT REST. DURING AMBULATION WE WALKED THE WHOLE [place], PATIENT BEGAN TO GET SHAKEY AT ALMOST BACK TO ROOM. HEART RATE:85, RESP RATE:22, SPO2:94%, BLOOD PRESSURE:154/89. PATIENT DID NOT QUALIFY. JUANA ALERTED TO THE RESULTS.
[2018-12-20 12:00] VITALS: BP 152/97
--- NOTE | 2018-12-20 15:15 | NUR ---
Discharge instructions reviewed with patient/family. Patient receptive and verbalizes understanding. Follow-up care arranged. Written instructions given to patient/family. KIRSTIE VAZ
== END 2018-12-20 15:15 | disposition home or self-care (01) | DRG 871 ==
LOC: ED 17:38 → EDHOLD 18:31 → 4E 18:31
PROVIDERS: Emergency Medicine; Internal Medicine Nephrology; Student in an Organized Health Care Education/Training Program; ADMIT Internal Medicine
DX: A41.9 Sepsis, unspecified organism (principal); J96.21 Acute and chronic respiratory failure with hypoxia; E22.2 Syndrome of inappropriate secretion of antidiuretic hormone; J44.1 Chronic obstructive pulmonary disease with (acute) exacerbation; I50.32 Chronic diastolic (congestive) heart failure; E44.0 Moderate protein-calorie malnutrition; M62.82 Rhabdomyolysis; Z68.1 Body mass index [BMI] 19.9 or less, adult; R74.0 Nonspecific elevation of levels of transaminase and lactic acid dehydrogenase [LDH]; I25.10 Atherosclerotic heart disease of native coronary artery without angina pectoris; F32.9 Major depressive disorder, single episode, unspecified; K21.9 Gastro-esophageal reflux disease without esophagitis; E78.5 Hyperlipidemia, unspecified; I11.0 Hypertensive heart disease with heart failure; E53.8 Deficiency of other specified B group vitamins; F17.210 Nicotine dependence, cigarettes, uncomplicated; R79.89 Other specified abnormal findings of blood chemistry; I05.0 Rheumatic mitral stenosis; M81.0 Age-related osteoporosis without current pathological fracture; Z99.81 Dependence on supplemental oxygen; Z95.2 Presence of prosthetic heart valve; Z87.01 Personal history of pneumonia (recurrent); Z79.82 Long term (current) use of aspirin; Z79.84 Long term (current) use of oral hypoglycemic drugs; Z79.899 Other long term (current) drug therapy; Z88.0 Allergy status to penicillin; Z91.018 Allergy to other foods; Z82.49 Family history of ischemic heart disease and other diseases of the circulatory system; Z80.1 Family history of malignant neoplasm of trachea, bronchus and lung; J20.9 Acute bronchitis, unspecified

== ENCOUNTER 2019-12-21 21:54 | Inpatient (IN) | payer OTHER ==
[~2019-12-21] VITALS: Ht 180.3 cm; Wt 72.6 kg
[2019-12-21 21:54] VITALS: BP 85/53
[~2019-12-21 21:54] MED LIST changes: +ASPIRIN ADULT L81 M1 PO; +CARVEDILOL6.25 MG PO; +DOXYCYCLINE100 MG PO; +PREDNISONE10 MG PO
[2019-12-21 22:29] LABS: BASO % 0.4 % (0.0-1.0); EOS # 0.1 10*3/uL (0.0-0.4); EOS % 1.1 % (1.0-4.0); HEMATOCRIT 37.3 % (42.0-52.0); LYMPH # 2.5 10*3/uL (1.3-4.4); LYMPH % 27.7 % (27.0-41.0); MEAN CELL VOLUME 100.3 fl (80.0-94.0); MEAN CORPUSCULAR HGB 34.4 pg (27.0-31.0); MEAN CORPUSCULAR HGB CONC 34.3 g/dl (33.0-37.0); MEAN PLATELET VOLUME 10.5 fl (9.6-12.3); MONO # 0.9 10*3/uL (0.1-1.0); MONO % 10.3 % (3.0-9.0); NEUT # 5.4 10*3/uL (2.3-7.9); NEUT % 59.6 % (47.0-73.0); PLATELET COUNT AUTOMATED 155 10*3/uL (130-400); RED BLOOD COUNT 3.72 10*6/uL (4.50-5.90); RED CELL DISTRI WIDTH 13.2 % (0-14.5)
[2019-12-21 22:44] LABS: ALBUMIN 3.8 gm/dl (3.1-4.5); ALKALINE PHOSPHATASE 136 U/L (45-117); BUN 34 mg/dl (7-24); CHLORIDE 100 mmol/L (98-107); CREATININE 1.82 mg/dL (0.70-1.30); POTASSIUM 3.9 mmol/L (3.5-5.1); SGOT/AST 22 IU/L (3-35); SGPT/ALT 38 U/L (12-78); SODIUM 133 mmol/L (136-145); TOTAL PROTEIN 6.9 gm/dL (6.4-8.2)
[2019-12-21 22:54] LABS: TROPONIN I < 0.015 ng/ml (<0.045)
[2019-12-21 22:58] LABS: ACT PARTIAL THROMBO TIME 29.7 SECONDS (20.0-32.1)
[2019-12-21 23:36] VITALS: BP 108/58
[2019-12-22] MEDS ORDERED: DILT-XR240 MG PO (00:50)
[2019-12-22] MEDS ORDERED: NEURONTIN800 MG PO (00:51)
[2019-12-22] MEDS ORDERED: ASPIRIN ADULT L81 M2 PO (00:54)
[2019-12-22 00:55] VITALS: BP 104/65; BP 140/65
[2019-12-22] MEDS ORDERED: FEROSUL325 MG PO (00:55)
[2019-12-22] MEDS ORDERED: SENNA8.6 MG PO (00:55)
[2019-12-22] MEDS ORDERED: LOSARTAN POTASS50 M1 PO (00:57)
[2019-12-22 02:36] LABS: COLOR YELLOW (YELLOW)
[2019-12-22 02:37] LABS: BILIRUBIN NEGATIVE; BLOOD NEGATIVE (NEGATIVE); CLARITY CLOUDY (CLEAR); GLUCOSE NEGATIVE; HYALINE CAST 16-20; KETONE TRACE; LEUKO ESTERASE NEGATIVE (NEGATIVE); NITRITE NEGATIVE (NEGATIVE)
[2019-12-22 02:38] LABS: RBC 0-2 rbc/hpf (0-2); WBC 0-2 wbc/hpf (0-5)
[2019-12-22] MEDS ORDERED: BENZONATATE100 M1 PO (11:36)
[2019-12-22] MEDS ORDERED: CETIRIZINE HYDR10 MG PO (11:37)
[2019-12-22] MEDS ORDERED: FLOVENT DISKUS50 MCG INH (11:39)
[2019-12-22 14:00] VITALS: BP 119/73
[2019-12-22 14:37] LABS: BASO % 0.3 % (0.0-1.0); EOS # 0.1 10*3/uL (0.0-0.4); EOS % 1.7 % (1.0-4.0); HEMATOCRIT 37.1 % (42.0-52.0); LYMPH # 2.2 10*3/uL (1.3-4.4); LYMPH % 33.9 % (27.0-41.0); MEAN CELL VOLUME 100.5 fl (80.0-94.0); MEAN CORPUSCULAR HGB 34.7 pg (27.0-31.0); MEAN CORPUSCULAR HGB CONC 34.5 g/dl (33.0-37.0); MEAN PLATELET VOLUME 10.3 fl (9.6-12.3); MONO # 0.7 10*3/uL (0.1-1.0); NEUT # 3.5 10*3/uL (2.3-7.9); NEUT % 52.6 % (47.0-73.0); PLATELET COUNT AUTOMATED 139 10*3/uL (130-400); RED BLOOD COUNT 3.69 10*6/uL (4.50-5.90); RED CELL DISTRI WIDTH 13.2 % (0-14.5); WHITE BLOOD COUNT 6.6 10*3/uL (4.8-10.8)
[2019-12-22 14:52] LABS: BUN 25 mg/dl (7-24); CHLORIDE 103 mmol/L (98-107); CREATININE 1.16 mg/dL (0.70-1.30); POTASSIUM 4.4 mmol/L (3.5-5.1); SODIUM 135 mmol/L (136-145)
[2019-12-22 16:00] VITALS: BP 119/73
[2019-12-22 20:00] VITALS: BP 117/78
[2019-12-23] VITALS: BP 115/79
[2019-12-23 07:28] LABS: CHLORIDE 105 mmol/L (98-107); SODIUM 137 mmol/L (136-145)
[2019-12-23 07:39] LABS: ALBUMIN 3.5 gm/dl (3.1-4.5); ALKALINE PHOSPHATASE 134 U/L (45-117); BUN 18 mg/dl (7-24); CREATININE 0.92 mg/dL (0.70-1.30); SGOT/AST 23 IU/L (3-35); SGPT/ALT 38 U/L (12-78); TOTAL PROTEIN 6.6 gm/dL (6.4-8.2)
[2019-12-23 08:00] VITALS: BP 132/68
[2019-12-23 12:00] VITALS: BP 126/81
[2019-12-23 20:00] VITALS: BP 109/74
[2019-12-24] VITALS: BP 108/72
[2019-12-24 06:12] LABS: BUN 14 mg/dl (7-24); CHLORIDE 105 mmol/L (98-107); CREATININE 0.85 mg/dL (0.70-1.30); POTASSIUM 4.1 mmol/L (3.5-5.1); SODIUM 136 mmol/L (136-145)
[2019-12-24 08:00] VITALS: BP 128/84
[2019-12-24 12:00] VITALS: BP 122/75
[2019-12-24 15:59] VITALS: BP 112/67
[2019-12-24 20:00] VITALS: BP 114/64
[2019-12-25] VITALS: BP 132/80
[2019-12-25 05:50] LABS: CREATININE 0.78 mg/dL (0.70-1.30)
[2019-12-25 06:17] LABS: BASO % 0.4 % (0.0-1.0); EOS # 0.1 10*3/uL (0.0-0.4); EOS % 1.8 % (1.0-4.0); HEMATOCRIT 35.7 % (42.0-52.0); LYMPH # 2.5 10*3/uL (1.3-4.4); LYMPH % 36.6 % (27.0-41.0); MEAN CELL VOLUME 102.3 fl (80.0-94.0); MEAN CORPUSCULAR HGB 34.4 pg (27.0-31.0); MEAN CORPUSCULAR HGB CONC 33.6 g/dl (33.0-37.0); MEAN PLATELET VOLUME 10.6 fl (9.6-12.3); MONO # 0.8 10*3/uL (0.1-1.0); MONO % 11.2 % (3.0-9.0); NEUT # 3.3 10*3/uL (2.3-7.9); NEUT % 49.6 % (47.0-73.0); PLATELET COUNT AUTOMATED 153 10*3/uL (130-400); RED BLOOD COUNT 3.49 10*6/uL (4.50-5.90); RED CELL DISTRI WIDTH 13.2 % (0-14.5); WHITE BLOOD COUNT 6.7 10*3/uL (4.8-10.8)
[2019-12-25 08:00] VITALS: BP 143/86
[2019-12-25 12:00] VITALS: BP 117/79
== END 2019-12-25 15:30 | disposition home or self-care (01) | DRG 422 ==
LOC: ED 21:54 → EDHOLD 12-22 00:19 → 5E 12-22 00:19 → 4E 12-25 14:08
PROVIDERS: Emergency Medicine; Internal Medicine Nephrology; Social Worker Clinical; ADMIT Internal Medicine; ATTEND Internal Medicine
DX: E86.0 Dehydration (principal); J43.2 Centrilobular emphysema; I05.0 Rheumatic mitral stenosis; N17.0 Acute kidney failure with tubular necrosis; N18.2 Chronic kidney disease, stage 2 (mild); I25.10 Atherosclerotic heart disease of native coronary artery without angina pectoris; G89.29 Other chronic pain; F32.9 Major depressive disorder, single episode, unspecified; F17.210 Nicotine dependence, cigarettes, uncomplicated; K21.0 Gastro-esophageal reflux disease with esophagitis; J94.8 Other specified pleural conditions; E43 Unspecified severe protein-calorie malnutrition; R59.0 Localized enlarged lymph nodes; E78.5 Hyperlipidemia, unspecified; J96.11 Chronic respiratory failure with hypoxia; I95.9 Hypotension, unspecified; I13.0 Hypertensive heart and chronic kidney disease with heart failure and stage 1 through stage 4 chronic kidney disease, or unspecified chronic kidney disease; E11.22 Type 2 diabetes mellitus with diabetic chronic kidney disease; I50.32 Chronic diastolic (congestive) heart failure; M81.0 Age-related osteoporosis without current pathological fracture; Z95.2 Presence of prosthetic heart valve; Z80.1 Family history of malignant neoplasm of trachea, bronchus and lung; Z88.0 Allergy status to penicillin; Z91.018 Allergy to other foods; Z82.5 Family history of asthma and other chronic lower respiratory diseases; Z82.49 Family history of ischemic heart disease and other diseases of the circulatory system; Z84.89 Family history of other specified conditions; Z95.0 Presence of cardiac pacemaker; Z79.899 Other long term (current) drug therapy; Z79.82 Long term (current) use of aspirin; Z68.22 Body mass index [BMI] 22.0-22.9, adult

== ENCOUNTER → 2020-08-24 | Outpatient (CLI) | payer OTHER ==
[~2020-08-24] MED LIST changes: +ASPIRIN ADULT L81 M2 PO; +BENZONATATE100 M1 PO; +CETIRIZINE HYDR10 MG PO; +DILT-XR240 MG PO; +FEROSUL325 MG PO; +FLOVENT DISKUS50 MCG INH; +LOSARTAN POTASS50 M1 PO; +NEURONTIN800 MG PO; +SENNA8.6 MG PO
== END | disposition home or self-care (01) ==
LOC: US 08-10 10:30
PROVIDERS: ATTEND Internal Medicine
DX: K43.9 Ventral hernia without obstruction or gangrene (principal); R22.2 Localized swelling, mass and lump, trunk

== ENCOUNTER → 2020-09-28 | Outpatient (CLI) | payer OTHER | END | disposition home or self-care (01) | LOC: CT 09-21 13:00 | PROVIDERS: ATTEND Internal Medicine | DX: K43.9 Ventral hernia without obstruction or gangrene (principal); N28.89 Other specified disorders of kidney and ureter; E27.8 Other specified disorders of adrenal gland; J84.9 Interstitial pulmonary disease, unspecified; I25.10 Atherosclerotic heart disease of native coronary artery without angina pectoris; M47.816 Spondylosis without myelopathy or radiculopathy, lumbar region; M43.16 Spondylolisthesis, lumbar region; M48.061 Spinal stenosis, lumbar region without neurogenic claudication ==

== ENCOUNTER 2023-01-07 18:27 | Inpatient (IN) | payer OTHER ==
[~2023-01-07] VITALS: Ht 180.3 cm; Wt 57.6 kg
[~2023-01-07 18:27] MED LIST changes: +FLUTICASONE PRO12 G2 INH; +LIPITOR20 MG PO; +OMEPRAZOLE40 MG PO; +THIAMINE HCL100 MG PO; +TRAZODONE50 MG PO
[2023-01-07 18:36] VITALS: BP 125/49
[2023-01-07 18:52] LABS: BASO % 0.4 % (0.0-1.0); EOS # 0.1 10*3/uL (0.0-0.4); EOS % 1.1 % (1.0-4.0); LYMPH # 1.5 10*3/uL (1.3-4.4); LYMPH % 19.7 % (27.0-41.0); MEAN CORPUSCULAR HGB 35.1 pg (27.0-31.0); MEAN CORPUSCULAR HGB CONC 35.5 g/dl (33.0-37.0); MEAN PLATELET VOLUME 10.7 fl (9.6-12.3); MONO # 0.6 10*3/uL (0.1-1.0); MONO % 8.4 % (3.0-9.0); NEUT # 5.3 10*3/uL (2.3-7.9); PLATELET COUNT AUTOMATED 238 10*3/uL (130-400); RED BLOOD COUNT 4.04 10*6/uL (4.50-5.90); RED CELL DISTRI WIDTH 11.6 % (0-14.5); WHITE BLOOD COUNT 7.5 10*3/uL (4.8-10.8)
[2023-01-07 19:04] LABS: ACT PARTIAL THROMBO TIME 29.3 SECONDS (20.0-32.1); INTERNATIONAL NORM RATIO 1.1 (2.0-3.5)
[2023-01-07 19:14] LABS: ALKALINE PHOSPHATASE 96 U/L (46-116); BUN 30 mg/dl (9-23); CHLORIDE 106 mmol/L (98-107); LIPASE 33 U/L (12-53); SGPT/ALT 25 U/L (10-49); TOTAL PROTEIN 6.7 gm/dL (6.0-8.0)
[2023-01-07 19:18] LABS: ETHYL ALCOHOL < 3.0 mg/dl (<3)
[2023-01-07 20:48] LABS: BILIRUBIN 1+ (Negative); BLOOD Negative (Negative); CLARITY Clear (Clear); COLOR Dark Yellow (Yellow); GLUCOSE Negative (Negative); KETONE Trace (Negative); LEUKO ESTERASE Negative (Negative); NITRITE Negative (Negative); PH 5.5 (4.5-8.0); SPECIFIC GRAVITY >= 1.030 (1.001-1.030)
[2023-01-07 20:56] LABS: URINE AMPHETAMINES Negative (1000ng/ml); URINE BARBITURATES Negative (200ng/ml); URINE BENZODIAZEPINES Negative (200ng/ml); URINE CANNABINOIDS (THC) Negative (50ng/ml); URINE COCAINE Negative (300ng/ml); URINE METHADONE Negative (300ng/ml); URINE OPIATES Negative (300ng/ml); URINE PHENCYCLIDINE Negative (25ng/ml)
[2023-01-07 21:03] LABS: EPITHELIAL CELLS 0-2; MUCOUS 3+; RBC 0-2 rbc/hpf (0-2)
[2023-01-07 22:40] VITALS: BP 156/94
[2023-01-08] VITALS: BP 156/92
[2023-01-08] MEDS ORDERED: Mysoline50 MG PO (00:57)
[2023-01-08 06:37] LABS: BASO % 0.6 % (0.0-1.0); EOS # 0.1 10*3/uL (0.0-0.4); EOS % 1.9 % (1.0-4.0); HEMATOCRIT 36.1 % (42.0-52.0); LYMPH # 2.1 10*3/uL (1.3-4.4); LYMPH % 31.4 % (27.0-41.0); MEAN CELL VOLUME 98.6 fl (80.0-94.0); MEAN CORPUSCULAR HGB CONC 35.5 g/dl (33.0-37.0); MEAN PLATELET VOLUME 11.1 fl (9.6-12.3); MONO # 0.7 10*3/uL (0.1-1.0); MONO % 10.7 % (3.0-9.0); NEUT # 3.7 10*3/uL (2.3-7.9); NEUT % 55.1 % (47.0-73.0); PLATELET COUNT AUTOMATED 223 10*3/uL (130-400); RED BLOOD COUNT 3.66 10*6/uL (4.50-5.90); RED CELL DISTRI WIDTH 11.8 % (0-14.5); WHITE BLOOD COUNT 6.7 10*3/uL (4.8-10.8)
[2023-01-08 06:51] LABS: ALKALINE PHOSPHATASE 81 U/L (46-116); BUN 25 mg/dl (9-23); CHLORIDE 107 mmol/L (98-107); FREE T4 1.01 ng/dl (0.89-1.76); POTASSIUM 3.7 mmol/L (3.4-5.1); SGPT/ALT 22 U/L (10-49); TOTAL PROTEIN 5.9 gm/dL (6.0-8.0)
[2023-01-08 08:16] VITALS: BP 150/102; BP 182/83
[2023-01-08 09:12] VITALS: BP 132/76
[2023-01-08 15:30] VITALS: BP 129/85
[2023-01-08 20:53] VITALS: BP 135/82
[2023-01-08 22:20] VITALS: BP 166/89
[2023-01-09] MEDS ORDERED: METOPROLOL SUC100 M1 PO
[2023-01-09] MEDS ORDERED: VITAMIN D350 MC2 GT (00:01)
[2023-01-09 08:00] VITALS: BP 129/68
[2023-01-09 12:00] VITALS: BP 140/76
[2023-01-09 16:00] VITALS: BP 138/80
[2023-01-09 20:00] VITALS: BP 106/76
[2023-01-10] VITALS: BP 146/79
[2023-01-10 08:00] VITALS: BP 116/87
[2023-01-10 12:00] VITALS: BP 119/75
== END 2023-01-10 14:30 | DRG 26 ==
LOC: ED 18:27 → EDHOLD 19:09 → ED 19:09 → 4E 22:26 → EDHOLD 22:26 → ED 22:26 → EDHOLD 01-08 08:16 → ED 01-08 08:40 → EDHOLD 01-08 21:27 → 4E 01-08 21:27
PROVIDERS: Internal Medicine; ADMIT Internal Medicine; ATTEND Internal Medicine
PROC: 0HBJXZZ Excision of Left Upper Leg Skin, External Approach (ICD-10-PCS; principal; 2023-01-09)
PROC: 0HB8XZZ Excision of Buttock Skin, External Approach (ICD-10-PCS; 2023-01-09)
DX: E11.43 Type 2 diabetes mellitus with diabetic autonomic (poly)neuropathy (principal); L89.220 Pressure ulcer of left hip, unstageable; L89.323 Pressure ulcer of left buttock, stage 3; E44.1 Mild protein-calorie malnutrition; L89.312 Pressure ulcer of right buttock, stage 2; I11.0 Hypertensive heart disease with heart failure; L89.890 Pressure ulcer of other site, unstageable; I50.32 Chronic diastolic (congestive) heart failure; I25.10 Atherosclerotic heart disease of native coronary artery without angina pectoris; E11.65 Type 2 diabetes mellitus with hyperglycemia; G89.29 Other chronic pain; F17.210 Nicotine dependence, cigarettes, uncomplicated; R29.6 Repeated falls; Z20.822 Contact with and (suspected) exposure to COVID-19; K21.9 Gastro-esophageal reflux disease without esophagitis; E78.5 Hyperlipidemia, unspecified; M81.0 Age-related osteoporosis without current pathological fracture; D75.89 Other specified diseases of blood and blood-forming organs; Z88.0 Allergy status to penicillin; Z91.018 Allergy to other foods; Z95.0 Presence of cardiac pacemaker; Z95.2 Presence of prosthetic heart valve; Z82.49 Family history of ischemic heart disease and other diseases of the circulatory system; Z80.1 Family history of malignant neoplasm of trachea, bronchus and lung; Z99.81 Dependence on supplemental oxygen; Z71.6 Tobacco abuse counseling; Z68.1 Body mass index [BMI] 19.9 or less, adult

== ENCOUNTER 2023-02-15 12:08 | Emergency (ER) | payer OTHER ==
[~2023-02-15] VITALS: Ht 180.3 cm; Wt 59.9 kg
[~2023-02-15 12:08] MED LIST changes: +METOPROLOL SUC100 M1 PO; +Mysoline50 MG PO; +VITAMIN D350 MC2 GT
[2023-02-15 14:02] VITALS: BP 143/83
== END 2023-02-15 15:08 ==
LOC: ED 12:08
DX: S09.90XA Unspecified injury of head, initial encounter (principal); I10 Essential (primary) hypertension; I25.2 Old myocardial infarction; K21.9 Gastro-esophageal reflux disease without esophagitis; Z88.0 Allergy status to penicillin; Z91.018 Allergy to other foods; Z90.89 Acquired absence of other organs; Z98.890 Other specified postprocedural states; F17.200 Nicotine dependence, unspecified, uncomplicated; F10.10 Alcohol abuse, uncomplicated; W01.10XA Fall on same level from slipping, tripping and stumbling with subsequent striking against unspecified object, initial encounter; Y93.01 Activity, walking, marching and hiking; Y92.002 Bathroom of unspecified non-institutional (private) residence as the place of occurrence of the external cause; Y99.8 Other external cause status